=== PATIENT | female | born 1960 | race Caucasian/White ===

== ENCOUNTER → 2016-03-18 | Outpatient (CLI) | payer BC, OTHER ==
[~2016-03-18] MED LIST: ACET500T33 PO; FLUT9.9S NS; IOHEXOL 180 MG/ML 10 ML VIAL. ONE; LOSA25TA4 PO; METH-38 PO; NAPR220C4 PO; OMEP20CA9 PO; SIMV20TA3 PO; TRIA1TAB3 PO; methylPREDNISolone ACETATE 40 MG/ML VIAL. ONE; methylPREDNISolone ACETATE 80 MG/ML VIAL. ONE
--- NOTE | 2016-03-18 20:25 | PAIN ---
DATE OF SERVICE: 03/18/2016 DIAGNOSES: Lumbar radiculopathy with lumbar degenerative disk disease and lumbar post-laminectomy syndrome. HISTORY OF PRESENT ILLNESS: The patient is a 56-year-old female who returns for followup status post caudal approach epidural steroid injection that is on 01/05/2016. The patient reports that her insurance had changed and she was getting back in and is now returned for followup evaluation for about 3 weeks of very good improvement about 80% pain in the low back and right greater than left lower extremity. Still some pain in the right leg and low back which is returning now, near baseline sharp, aching, dull, shooting pain in the low back, right leg, posterior lateral thigh, posterior calf, posterior ankle and foot as well as in the left posterior gluteus, posterior thigh. The patient reports worse with walking and standing, change in positions or prolonged sitting. It does awaken her from sleep again, but otherwise is a 9 on a scale of 10. The patient reports no new motor or sensory deficits, no new bowel or bladder incontinence or other complaints. PHYSICAL EXAMINATION: VITAL SIGNS: The patient's blood pressure 156/92, pulse 73, respirations 18, temperature 97.9 degrees Fahrenheit, height 5 feet 4 inches, weighs 221 pounds. GENERAL: The patient is awake, alert, oriented, appropriate, very pleasant demeanor. HEENT: Head shows normocephalic, atraumatic. Extraocular movements are intact and symmetrical. Oral cavity shows mucous membranes moist and pink. Dentition is intact. NECK: Shows anterior throat supple without palpable lymphadenopathy noted. Swallow reflex is symmetrical. CHEST: Shows normal on inspection. Breath sounds clear to auscultation bilaterally. HEART: Shows S1 and S2 clear. ABDOMEN: Obese, soft, nontender, nondistended. No palpable organomegaly is noted. No rebound or guarding demonstrated. BACK: Shows spine grossly midline. Slight exaggeration of thoracic kyphosis and mild flattening of lumbar lordotic curvature previously well-healed surgical scars noted in the lumbar distribution. Lumbar paraspinous muscle shows some diffuse tenderness with palpation throughout the middle and lower distribution of paraspinous muscles, but only diffusely without evidence of atrophy, hypertrophy without trigger points, without radiation of pain. The patient shows good rotation and motion of the lumbar spine, both laterally as well as extension and flexion without significant increase in pain. EXTREMITIES: Lower extremities show deep tendon reflexes at 1+ in the patellar and tendo calcaneus tendons are equal. Motor exam is approximately 4 on a scale 5 with right quadriceps and hamstring flexion 5/5 on the left and 5/5 dorsiflexion and extension bilaterally. Options were discussed with the patient. At this time, the patient's old chart was reviewed as her current medication regimen updated. Current review of systems updated today as well. We will plan on second caudal epidural steroid injection today with fluoroscopic guidance. Risks were again discussed including, but not limited to bleeding, infection, possibility of epidural hematoma, subsequent neurologic compromise, dural puncture headaches, spinal cord and/or nerve damage, side effects of steroid medication and poor results regarding pain control. The patient understands and wishes to proceed. The patient will return to clinic in approximately 2 weeks for followup, was counseled on return appointment, activity level and side effects to be aware of. DIAGNOSIS: Lumbar radiculopathy with lumbar degenerative disk disease and post-lumbar laminectomy syndrome. PROCEDURE: Caudal approach epidural steroid injection with fluoroscopic guidance under sterile prep and drape using C-arm and local anesthetic. MEDICATIONS INJECTED: 120 mg Depo-Medrol plus 10 mL preservative-free normal saline and 2 mL of Isovue contrast. CONDITION AT DISCHARGE: Stable. The patient tolerated procedure well, had no complications. HORTENCIA DALTON MD DR: REBEKA/robert JOB#: [id number] / [id number]
== END ==
LOC: PNCL 08:04
PROVIDERS: ATTEND Anesthesiology
DX: M51.16 Intervertebral disc disorders with radiculopathy, lumbar region (principal); M96.1 Postlaminectomy syndrome, not elsewhere classified
CPT/HCPCS: 62323; J1030; J1040

== ENCOUNTER → 2016-04-05 | Outpatient (CLI) | payer BC ==
--- NOTE | 2016-04-06 02:58 | PAIN ---
DATE OF SERVICE: 04/05/2016 DIAGNOSES: Lumbar radiculopathy with lumbar degenerative disk disease and post-lumbar laminectomy syndrome. HISTORY OF PRESENT ILLNESS: The patient is a 56-year-old female who returns for followup status post caudal approach epidural steroid injections x 2. The patient reports about 60% improvement overall, still has pain across her low back. Her legs are much better. The patient reports she has been increasing her activity with greater ease and comfort, still doing some water aerobics which are helpful, but this pain is worse with weightbearing, standing and walking. The patient has a cramping sensation in the low back, as well as in the bilateral posterior gluteus, posterior thighs, right leg is much better, but still some radiation into the right thigh and lower leg occasionally. The patient reports pain when she is up on her feet more than about an hour. The patient reports no new motor or sensory deficits, no new bowel or bladder incontinence or other complaints. PHYSICAL EXAMINATION: VITAL SIGNS: Blood pressure 136/73, pulse is ____, respirations are 18, temperature 97.8 degrees Fahrenheit, height is 5 feet 4 inches, weight is 219 pounds. GENERAL: The patient is awake, alert, oriented, appropriate, very pleasant demeanor. HEENT: Shows normocephalic, atraumatic. Extraocular movements are intact and symmetrical. Oral cavity, mucous membranes are moist and pink. Dentition is intact. NECK: Shows anterior throat supple. Swallow reflex is symmetrical. Neck shows full rotation and motion of the cervical spine without difficulty including extension and flexion. CHEST: Shows normal on inspection. Breath sounds are clear to auscultation bilaterally. HEART: Shows S1 and S2 clear. ABDOMEN: Soft, nontender, nondistended. No palpable organomegaly is noted. No rebound or guarding demonstrated. BACK: Shows spine grossly midline. Slight exaggeration of thoracic kyphosis, mild flattening of lumbar lordotic curvature. Well-healed surgical scar is noted in the lumbar distribution. Lumbar paraspinous musculature appears roughly symmetrical without evidence of atrophy, hypertrophy. With palpation is moderately tender, but only diffusely in the lower lumbar distribution, more on the right than the left, but present bilaterally. EXTREMITIES: Lower extremities show deep tendon reflexes at 1+ in the patellar and tendo calcaneus tendons. Motor exam is approximately 4 on a scale of 5 with right quadriceps, hamstring and 5/5 with dorsiflexion and extension, 5/5 on the left entirely. Peripheral pulses are 1+ posterior tibial and dorsalis pedis pulses. No peripheral edema is noted. No clubbing or cyanosis. Options were discussed with the patient. The patient's old chart was reviewed as her current medication regimen updated. Current review of systems updated today as well. We will proceed with a third caudal approach epidural steroid injection today with fluoroscopic guidance. Risks were again discussed including, but not limited to bleeding, infection, possibility of epidural hematoma, subsequent neurologic compromise, dural puncture, headaches, spinal cord and/or nerve damage, side effects of steroid medication and poor results regarding pain control. The patient understands and wishes to proceed. The patient will return to clinic in approximately 2 weeks for followup. We had discussed possible physical therapy with the patient's back and water therapy at that time, and although she is doing aerobics. I encouraged her to maintain this regimen and keep doing her exercises, but may benefit from some specific instruction with core strengthening as well as low back strengthening and conditioning as well, the patient is interested in this if still having some pain after this last injection. The patient was counseled on activity levels as well as side effects to be aware of. I will follow in approximately 1 week with a progress report at that time. DIAGNOSES: Lumbar radiculopathy with lumbar degenerative disk disease and post-lumbar laminectomy syndrome. PROCEDURE: Caudal approach epidural steroid injection using C-arm fluoroscopic guidance under sterile prep and drape using local anesthesia. MEDICATIONS INJECTED: 120 mg of Depo-Medrol plus 10 mL of preservative-free normal saline and 2 mL of Isovue for contrast. CONDITION AT DISCHARGE: Stable. The patient tolerated procedure well, had no complications. HORTENCIA DALTON MD DR: REBEKA/robert JOB#: [id number] / [id number]
== END | disposition home or self-care (01) ==
LOC: PNCL 08:05
PROVIDERS: ATTEND Anesthesiology
DX: M51.16 Intervertebral disc disorders with radiculopathy, lumbar region (principal); M96.1 Postlaminectomy syndrome, not elsewhere classified
CPT/HCPCS: 62323; J1030; J1040

== ENCOUNTER → 2016-08-26 | Outpatient (CLI) | payer BC ==
[~2016-08-26] MED LIST changes: +GADOBUTROL 10 MMOL/10 ML VIAL IV ONE; -IOHEXOL 180 MG/ML 10 ML VIAL. ONE; -methylPREDNISolone ACETATE 40 MG/ML VIAL. ONE; -methylPREDNISolone ACETATE 80 MG/ML VIAL. ONE
--- NOTE | 2016-08-26 16:37 | KCIC ---
EXAM: MRI LUMBAR SPINE WITH AND WITHOUT CONTRAST. HISTORY: Low back pain with bilateral lower extremity radiculopathy. Prior lumbar surgery. TECHNIQUE: Magnetic resonance images of the lumbar spine were obtained before and after the intravenous administration of 10 mL Gadavist. COMPARISON: November 11, 2015. FINDINGS: There is a mild lumbar levocurvature. Instrumented anterior and posterior fusion is noted at L4-5. There is discectomy with interbody grafting. Pedicle screws are fixed by vertical juan on the right only. Associated laminectomy changes are noted. The inferior articular processes appear to be at least partially resected at L4. No fractures are identified. Degenerative disc disease is moderate from L2 through L4 and at L5-S1. The conus is at L1 and appears normal. There are no enhancing parenchymal lesions. At T10-11, there is a moderate central disc protrusion. There is no clear associated stenosis, though this is incompletely included. At T12-L1, there is a small posterior disc bulge. There is no stenosis. At L1-2, there is no stenosis. Facet and ligamentum flavum hypertrophy is mild. At L2-3, there is a moderate posterior disc bulge. Facet and ligamentum flavum hypertrophy is mild. There is mild mass effect on both L3 nerve roots in the lateral recesses. There is no significant neural foraminal stenosis. At L3-4, facet and ligamentum flavum hypertrophy is severe. There is a moderate posterior disc bulge. Central canal stenosis is moderate to severe. This appears slightly worsened since the prior study. The left lateral recess is occluded. Neural foraminal stenosis is mild bilaterally. At L4-5, the central canal is decompressed. There is no neural foraminal stenosis. There is no space-occupying granulation tissue. At L5-S1, there is a small posterior disc-osteophyte complex. It exerts mild mass effect on the right S1 nerve root in the lateral recess. IMPRESSION: 1. Instrumented anterior and posterior fusion with laminectomies at L4-5. Resection of the inferior articular processes at L4. No residual stenosis. 2. A moderate posterior disc bulge and severe facet and ligamentum flavum hypertrophy results in moderate to severe central canal stenosis and mild bilateral neural foraminal stenosis at L3-4. This appears slightly worsened since 2016. 3. Moderate degenerative disc disease from L2 through L4 and at L5-S1. 4. A moderate central disc protrusion at T10-11 is incompletely assessed but does not clearly result in stenosis. Electronically signed by: Ginny Torres MD (08/26/2016 4:34 PM) [facility]
== END | disposition home or self-care (01) ==
LOC: KCIC MRI 15:09
PROVIDERS: ATTEND Neurological Surgery
DX: M48.06 Spinal stenosis, lumbar region (principal)
CPT/HCPCS: 72158; A9585

== ENCOUNTER → 2016-09-06 | Outpatient (CLI) | payer BC ==
[~2016-09-06] MED LIST changes: +DOCU-109 PO; +ERGO500027 PO; -GADOBUTROL 10 MMOL/10 ML VIAL IV ONE; +HYDR-2762 PO
--- NOTE | 2016-09-06 10:08 | EKG ---
[facility] [address] [place] [address] Test Date: 2016-09-06 Test Time: 10:10:03 Pat Name: YORDY GIL Department: Room: Gender: F [facility] Manager: AMRIK : 1960 Requested By: ADAN CISNEROS Order Number: [id number] Reading MD: Marc Maciel Measurements Intervals Felda Rate: 71 P: 31 AR: 170 QRS: 53 QRSD: 78 T: 33 QT: 386 QTc: 424 Interpretive Statements SINUS RHYTHM NO SPECIFIC ECG ABNORMALITIES RI6.01 No previous ECG available for comparison Electronically Signed On 09-08-2016 11:33:18 CDT by Marc Maciel
[2016-09-06 10:15] LABS: BASO % 1 % (0-3); EOS % 2 % (0-3); HEMATOCRIT 40.9 % (36.0-47.0); LYMPH # 1.8 x10^3/uL (1.0-4.8); LYMPH % 27 % (24-48); MEAN CORPUSCULAR HEMOGLOBIN 28 pg (25-35); MEAN CORPUSCULAR HGB CONC 34 g/dL (31-37); MEAN CORPUSCULAR VOLUME 81 fL (79-100); MONO % 6 % (0-9); NEUT % 65 % (31-73); PLATELET COUNT 258 x10^3/uL (140-400); RED BLOOD COUNT 5.04 x10^6/uL (3.50-5.40); RED CELL DISTRIBUTION WIDTH 16.2 % (11.5-14.5); WHITE BLOOD COUNT 6.7 x10^3/uL (4.0-11.0)
[2016-09-06 10:34] LABS: ALBUMIN 3.9 g/dL (3.4-5.0); CALCIUM 9.6 mg/dL (8.5-10.1); CREATININE 0.8 mg/dL (0.6-1.0); GFR 73.7; POTASSIUM 3.7 mmol/L (3.5-5.1); TOTAL BILIRUBIN 0.6 mg/dL (0.2-1.0); TOTAL PROTEIN 7.8 g/dL (6.4-8.2)
== END | disposition home or self-care (01) ==
LOC: SURGPAT 08:59
PROVIDERS: ATTEND Neurological Surgery
DX: M51.16 Intervertebral disc disorders with radiculopathy, lumbar region (principal)
CPT/HCPCS: 36415; 80053; 85027; 87641; 93005

== ENCOUNTER 2016-09-09 08:51 | Day surgery (SDC) | payer BC ==
[~2016-09-09] VITALS: Ht 162.6 cm; Wt 102.1 kg
[~2016-09-09 08:51] MED LIST changes: +BACITRACIN 50,000 UNIT in IV NORMAL SALINE 1000ML BAG 1,000 ML IRR ONE; +BUPIVACAINE-EPI 0.5%-1:200000 50 ML VIAL. ONE; -DOCU-109 PO; +GELATIN SPONGE SIZE 100. ONE; -HYDR-2762 PO; +HYDROmorphone 2 MG/ML VIAL IV PRN; +IV RINGERS,LACTATED 1000ML 1,000 ML IV SCH; +KETOROLAC 60 MG/2 ML INJ FOR OR. ONE; +LIDOCAINE 1% 1 ML SYRINGE. ID PRN; +MORPHINE SULFATE 2 MG/ML DISP.SYRIN. IV PRN; +ONDANSETRON PF 4 MG/2 ML VIAL. IV PRN; +PROCHLORPERAZINE 10 MG/2 ML VIAL. IV PRN; +THROMBIN TOPICAL 20,000 UNIT SPRAY.SYRN KIT TP ONE; +fentaNYL PF VIAL 100 MCG/2 ML VIAL IV PRN
[2016-09-09] MEDS ORDERED: REMIFENTANIL 2 MG VIAL. IV ONE (09:16)
[2016-09-09] MEDS ORDERED: PROPOFOL 50 ML IV ONE ×2 (09:16→13:14)
[2016-09-09] MEDS ORDERED: DESFLURANE > 120 MINUTES IH ONE (09:16)
[2016-09-09] MEDS ORDERED: ROCURONIUM 50 MG/5 ML VIAL. ONE (09:16)
[2016-09-09] MEDS ORDERED: PROPOFOL 20 ML IV ONE (09:16)
[2016-09-09] MEDS ORDERED: DEXAMETHASONE SOD PHOS 20 MG/5 ML VIAL. ONE (09:16)
[2016-09-09] MEDS ORDERED: fentaNYL PF VIAL 100 MCG/2 ML VIAL ONE (09:16)
[2016-09-09] MEDS ORDERED: ONDANSETRON PF 4 MG/2 ML VIAL. ONE (09:16)
[2016-09-09] MEDS ORDERED: LIDOCAINE 2% PF Vial for OR 5 ML VIAL. ONE (09:16)
[2016-09-09] MEDS ORDERED: MIDAZOLAM HCL/PF 2 MG/2 ML VIAL. ONE (09:17)
[2016-09-09] MEDS ORDERED: MINERAL OIL/PETROLATUM,WHITE OPHTH OINT 3.5GM TUBE. ONE (10:59)
[2016-09-09] MEDS ORDERED: 0.9 % SODIUM CHLORIDE 50 ML VIAL. IJ ONE (11:28)
[2016-09-09] MEDS ORDERED: ePHEDrine PF IN SALINE 50 MG/5 ML DISP.SYRIN IV ONE (11:37)
[2016-09-09] MEDS ORDERED: PHENYLEPHRINE in 0.9% NACL PF 1 MG/10 ML DISP.SYRIN. IV ONE (12:00)
--- NOTE | 2016-09-09 13:50 | DISCH ---
DISCHARGE INSTRUCTIONS Condition on Discharge Condition on Discharge: Stable Activity After Discharge Activity Instructions for Disc: Activity as tolerated, Avoid exertion Other activity instructions: no driving for a week Bathing Instructions: Shower-keep dressing dry Lifting Instructions after Dis: No heavy lifting, No pulling or pushing, Do not lift >10 pounds Driving Instructions after Dis: Do not drive Diet after Discharge Additional Diet Restrictions: resume home diet Wound Incision Care Wound/Incision Care: Ice to area for comfort Other wound/incision instructi: may remove dressing in 48 hrs if dry then may shower- no soaking Contacting the after DC Call your doctor for: Concerns you may have Follow-Up Follow up with: Dr. Cisneros's nurse in 2 weeks [phone] ADAN CISNEROS MD Sep 09, 2016 13:50
[2016-09-09] MEDS ORDERED: DOCU-109 PO (13:52)
[2016-09-09] MEDS ORDERED: HYDR-2762 PO (13:52)
[2016-09-09] MEDS ORDERED: HYDROcodone/APAP 7.5/325MG 1 TAB TABLET PO ONE (14:45)
[2016-09-09 15:30] VITALS: BP 126/77
--- NOTE | 2016-09-09 21:17 | OP ---
DATE OF SURGERY: 09/09/2016 PREOPERATIVE DIAGNOSES: Lateral recess stenosis and recurrent disk herniation L3-L4, left. POSTOPERATIVE DIAGNOSES: Lateral recess stenosis and recurrent disk herniation L3-L4, left. OPERATION PERFORMED: Hemilaminotomy and microdiskectomy L3-L4, left, reoperation. The operation was done with EMG monitoring, fluoroscopy, microscopic dissection. TIE BINDER: ARAM Peres, assisted with the surgery. She assisted with the exposure, the microdiskectomy as well as the closure. OPERATIVE INDICATIONS: The patient is a very pleasant 56-year-old woman who developed intractable back and left leg pain. In the past, she has undergone instrumented fusion at L4-L5 and has also undergone surgery in the past at L3-L4. This point though she appeared to have recurrent ____ along with lateral stenosis and I recommended lumbar microsurgery. I spoke with her about the surgery, the risks, technique and the expected postoperative course, and she understood and wished to go ahead. DESCRIPTION OF PROCEDURE: Following general endotracheal anesthesia, the patient was positioned prone on the Acromed spine board. Lumbar region was then prepped and draped in standard fashion. STACY hose and AV impulse boots were applied for DVT prophylaxis. The microscope was draped. Fluoroscope was draped and brought into the field. Monitoring was established. Ancef 2 grams was given less than 1 hour prior to initiation of surgery. Using fluoroscopic guidance, a midline incision was made directly over the L3-L4 interspace. I dissected down through the skin and subcutaneous tissue and reflected the paraspinal muscles and placed a [place] microdisk retractor. I brought in the microscope and the remainder of surgery done with the microscope using microscopic technique. I used curettes to remove scar and then the high speed air drill was used to enlarge her previous hemilaminotomy superiorly, laterally and inferiorly. I did enlarge and performed a partial foraminotomy. I then began to free up thickened heavy scarred ligamentum flavum from the lateral position and gradually began to peel this away exposing the dura and then the exiting root. It took some considerable time to work through the dense scar and free up the lateral edge of the dura and the root, but this was accomplished and then I gently retracted the root medially. There was a sequestered disk fragment at the level of the disk compressing the root markedly. I gently entered into the space and removed some disk with the micropituitary and then as I worked, I was able to free up this region much more fully, removed multiple disk fragments. I was able to retract the root medially with mostly much less pressure. I entered into the disk space after incising the annulus with #11 blade. I performed a generous diskectomy with pituitary rongeurs. As I worked, the entire region became very well decompressed. I then irrigated copiously with antibiotic solution. I removed the retractor, obtained perfect hemostasis in the muscle and at the level of the decompression. I did use also a small amount of bone wax as well as bipolar cautery where necessary. I closed the wound in layers with absorbable suture. Skin was closed with 4-0 subcuticular stitch. The operation went very well. I was quite pleased with the surgery. ADAN CISNEROS MD DR: BERONICA/robert JOB#: [id number] / [id number]
--- NOTE | 2016-09-13 13:35 | PATHOLOGY ---
PATHOLOGY REPORT * * * * * * * * FINAL DIAGNOSIS: Segments of fibrocartilaginous, adipose, and skeletal muscle tissue and bone, lumbar disc and decompression: - Degenerative changes and scarring of fibrocartilaginous tissue. (JPM:kulwant; 09/13/2016) COMMENT: There is no evidence of an acute inflammatory process or malignancy. (JPM:kulwant; 09/13/2016) REPORT ELECTRONICALLY SIGNED BY: Jun Correa M.D. DATE/TIME: 09/13/2016 13:34 * * * * * * * * GROSS PATHOLOGY: Received in formalin labeled "Debi Hawkins, lumbar disc and decompression" are multiple segments of beckham, rubbery, and gritty tissue admixed with bone. The specimen measures 2.3 x 2.0 x 0.6 cm in aggregate dimensions. The tissue is submitted entirely in cassette A1, following decalcification. (JPM; 09/10/16) INITIAL CPT CODE(S): A; 05924, 41613 Professional services performed [place] [facility] [address] Technical services performed by [facility] at [address] [place] [address] [address], [place] [address]. SPECIMEN(S) RECEIVED: A.Lumbar disc and decompression CLINICAL HISTORY: Lumbar herniated disc with radiculopathy PATIENT: DEBI HAWKINS /AGE: 1 1960 (Age: 56) PATIENT #: [id number] ALT CASE #: SPECIMEN COLLECTION DATE: 09/09/2016 SPECIMEN RECEIVED DATE: 09/10/2016 [facility] - [facility] [place] [address] - PHONE: [phone] * * * END OF REPORT * * *
== END 2016-09-09 15:37 | disposition home or self-care (01) ==
LOC: SURG 08:51
PROVIDERS: ATTEND Neurological Surgery
DX: M51.36 Other intervertebral disc degeneration, lumbar region (principal); E78.00 Pure hypercholesterolemia, unspecified; I10 Essential (primary) hypertension; Z86.39 Personal history of other endocrine, nutritional and metabolic disease; Z90.49 Acquired absence of other specified parts of digestive tract; Z90.710 Acquired absence of both cervix and uterus
CPT/HCPCS: 63030; 76000; 97161; J1100; J1885; J2001; J2250; J2370; J2405; J2704; J3010; J3490; J7030; J2270

== ENCOUNTER → 2017-01-10 | Outpatient (CLI) | payer BC ==
[~2017-01-10] MED LIST changes: -BACITRACIN 50,000 UNIT in IV NORMAL SALINE 1000ML BAG 1,000 ML IRR ONE; -BUPIVACAINE-EPI 0.5%-1:200000 50 ML VIAL. ONE; +DOCU-109 PO; -GELATIN SPONGE SIZE 100. ONE; +HYDR-2762 PO; -HYDROmorphone 2 MG/ML VIAL IV PRN; -IV RINGERS,LACTATED 1000ML 1,000 ML IV SCH; -KETOROLAC 60 MG/2 ML INJ FOR OR. ONE; -LIDOCAINE 1% 1 ML SYRINGE. ID PRN; -MORPHINE SULFATE 2 MG/ML DISP.SYRIN. IV PRN; -ONDANSETRON PF 4 MG/2 ML VIAL. IV PRN; -PROCHLORPERAZINE 10 MG/2 ML VIAL. IV PRN; +PSYL575P4 PO; -THROMBIN TOPICAL 20,000 UNIT SPRAY.SYRN KIT TP ONE; -fentaNYL PF VIAL 100 MCG/2 ML VIAL IV PRN
[2017-01-10 09:13] LABS: BASO # 0.1 x10^3/uL (0.0-0.2); BASO % 1 % (0-3); EOS % 2 % (0-3); HEMATOCRIT 40.9 % (36.0-47.0); HEMOGLOBIN 13.4 g/dL (12.0-15.5); LYMPH # 2.2 x10^3/uL (1.0-4.8); LYMPH % 27 % (24-48); MEAN CORPUSCULAR HEMOGLOBIN 27 pg (25-35); MEAN CORPUSCULAR HGB CONC 33 g/dL (31-37); MEAN CORPUSCULAR VOLUME 84 fL (79-100); MONO % 7 % (0-9); NEUT % 64 % (31-73); PLATELET COUNT 280 x10^3/uL (140-400); RED BLOOD COUNT 4.89 x10^6/uL (3.50-5.40); RED CELL DISTRIBUTION WIDTH 15.3 % (11.5-14.5); WHITE BLOOD COUNT 8.2 x10^3/uL (4.0-11.0)
[2017-01-10 09:28] LABS: PROTHROMBIN TIME PATIENT 12.4 SEC (11.7-14.0)
[2017-01-10 10:16] LABS: BILIRUBIN,URINE NEGATIVE (NEG); GLUCOSE,URINE NEGATIVE (NEG); NITRITE,URINE NEGATIVE (NEG); PROTEIN,URINE NEGATIVE (NEG-TRACE); UROBILINOGEN,URINE 0.2 mg/dL (0.2 mg/dL)
[2017-01-10 10:26] LABS: SQUAMOUS EPITHELIAL CELL,UR FEW /LPF
[2017-01-10 10:27] LABS: BACTERIA,URINE FEW /HPF (0-FEW); RBC,URINE 0 /HPF (0-2)
--- NOTE | 2017-01-10 13:28 | RAD ---
Indication: Preop for knee replacement surgery. Time of exam 1317 hours. Correlation is made with prior study from 06/30/2010. FINDINGS: The heart size is normal. The lungs are clear. No pleural effusion or pneumothorax is identified. The pulmonary vascularity is normal. IMPRESSION: No acute abnormality detected.
== END | disposition home or self-care (01) ==
LOC: SURGPAT 13:04
PROVIDERS: ATTEND Orthopaedic Surgery
DX: Z01.818 Encounter for other preprocedural examination (principal); M17.12 Unilateral primary osteoarthritis, left knee; Z96.652 Presence of left artificial knee joint
CPT/HCPCS: 36415; 71020; 81001; 85025; 85610; 85651; 85730; 87641

== ENCOUNTER 2017-02-01 06:49 | Inpatient (IN) | payer BC ==
--- NOTE | 2017-01-31 15:30 | PDOC1 ---
History and Physical Date of Admission Date of Admission DATE: 02/01/17 Identification/Chief Complaint Chief Complaint left knee osteoarthritis pain Problems: Source Source: Chart review History of Present Illness History of Present Illness The patient is a 56 year old female with left knee pain for years, worsening since her back surgery in 08/2016. She started conservative treatment for her knee osteoarthritis on 10.14.16 including aspirating her left knee, receiving a cortisone injection, and starting formal physical therapy. She states that her knee feels about the same but physical therapy did help a little. Currently, she is taking Tramadol for pain management. She enjoys water aerobics, walking, and going to [employer] football games. However, she states that her knee bothers her everyday and makes these activities difficult. She states that walking into the grocery store is hard and she has a limp by the end of the day. Past Medical History Cardiovascular: HTN, Hyperlipidemia Past Surgical History Past Surgical History multiple back surgeries Past Surgical History: Cholecystectomy, Hysterectomy Family History Family History: Diabetes, Heart Disease, Hypertension Social History Smoke: No ALCOHOL: none Drugs: None Current Medications Current Medications Current Medications Ondansetron HCl (Zofran) 4 mg PRN Q6HRS PRN IV NAUSEA/VOMITING; Start at 07:00; Stop 02/02/17 at 06:59 Fentanyl Citrate (Fentanyl 2ml Vial) 25 mcg PRN Q5MIN PRN IV MILD PAIN; Start 02/01/17 at 07:00; Stop 02/02/17 at 06:59 Fentanyl Citrate (Fentanyl 2ml Vial) 50 mcg PRN Q5MIN PRN IV MODERATE PAIN; Start 02/01/17 at 07:00; Stop 02/02/17 at 06:59 Morphine Sulfate 1 mg PRN Q10MIN PRN IV SEVERE PAIN; Start 02/01/17 at 07:00; Stop 02/02/17 at 06:59 Ringer's Solution 1,000 ml @ 30 mls/hr Q24H IV ; Start 02/01/17 at 07:00; Stop 02/01/17 at 18:59 Lidocaine HCl (Xylocaine-Mpf 1% Vial) 2 ml PRN 1X PRN ID IV START; Start 02/01 at 07:00; Stop 02/02/17 at 06:59 Hydromorphone HCl (Dilaudid) 0.5 mg PRN Q10MIN PRN IV SEV PAIN, Second choice; Start 02/01/17 at 07:00; Stop 02/02/17 at 06:59 Prochlorperazine Edisylate (Compazine) 5 mg PACU PRN PRN IV NAUSEA, MRX1; Start 02/01/17 at 07:00; Stop 02/02/17 at 06:59 Bacitracin 01545 unit/Sodium Chloride 1,000 ml @ 1,000 mls/hr 1X PERIOP ONCE IRR ; Start 02/01/17 at 06:00; Stop 02/01/17 at 06:59 Active Scripts Active Reported Metamucil Powder (Psyllium Seed (with Sugar)) 575 Gm Powder 1 Tsp PO DAILY Vitamin D2 (Ergocalciferol (Vitamin D2)) 50,000 Unit Capsule 1 Cap PO TWICE WEEKLY Omeprazole 20 Mg Capsule.dr 1 Cap PO DAILY Flonase Allergy Relief (Fluticasone Propionate) 9.9 Ml [place].susp 2 Sprays NS DAILY Tylenol Extra Strength (Acetaminophen) 500 Mg Tablet 500 Mg PO BID Aleve (Naproxen Sodium) 220 Mg Capsule 220 Mg PO BID Simvastatin 20 Mg Tablet 20 Mg PO HS Losartan Potassium 25 Mg Tablet 25 Mg PO DAILY Triamterene-Hctz 37.5-25 Mg Tb (Triamterene/Hydrochlorothiazid) 1 Each Tablet 1 Tab PO DAILY Allergies Allergies: Coded Allergies: No Known Drug Allergies (Unverified , 09/09/16) Physical Exam General: Alert, Oriented X3, Cooperative, No acute distress HEENT: Atraumatic, EOMI Lungs: Normal air movement Heart: RRR Abdomen: Soft Extremities: No clubbing, No cyanosis, Normal pulses, Other (There is normal alignment. No masses. Small effusion. Tenderness on the medial and lateral joint lines. Range of motion is 5-95 degrees. There is crepitus with range of motion, and pain at the extremes of motion. The knee is stable to varus and valgus stress without subluxation or laxity. Muscle strength is normal (5/5) for quadriceps and hamstrings, and muscle tone is normal. The skin is normal with no scars, rashes, lesions or ulcers. Light touch sensation is intact. No edema and no varicosities. Dorsalis pedis pulse is intact and capillary refill is normal. ) Skin: No rashes, No breakdown, No significant lesion Neuro: Normal speech, Sensation intact Psych/Mental Status: Mental status NL, Mood NL VTE Prophylaxis Ordered VTE Prophylaxis Devices: Yes VTE Pharmacological Prophylaxi: Yes Assessment/Plan Assessment/Plan She has tried conservative treatment with over the counter anti-inflammatories and Tramadol, physical therapy, and a cortisone injection. Continued non- operative treatments could include viscosupplementation, aspirations and cortisone injections, bracing, and more physical therapy. As conservative treatment has not improved her symptoms much, we also discussed a left total knee arthroplasty. We discussed the potential risks of infection, neurovascular injury, bleeding, blood clots, need for revision surgery, or other potential surgical or anesthetic complications. She denies any metal or nickel allergies. She agrees to proceed with surgery. AISSATOU IVY Jan 31, 2017 15:30
[2017-02-01] VITALS (8 sets, daily range): BP systolic 105–120; BP diastolic 64–73
[~2017-02-01] VITALS: Ht 162.6 cm; Wt 79.4 kg
[~2017-02-01 06:49] MED LIST changes: +BACITRACIN 50,000 UNIT in IV NORMAL SALINE 1000ML BAG 1,000 ML IRR ONE; +CELECOXIB 200 MG CAPSULE. PO PRN; +HYDROcodone/APAP 7.5/325MG 1 TAB TABLET PO PRN; +MORPHINE SULFATE 5 MG, KETOROLAC 30 MG, ROPIVacaine 0.5% PF 60 ML, EPINEPHrine 0.5 MG i... INT ART ONE; +TRANEXAMIC ACID 1,000 MG in IV NS 50ML -- 1ST BAG INJ ONE
[2017-02-01] MEDS ORDERED: LIDOCAINE 1% PF 2 ML VIAL. ID PRN (07:00)
[2017-02-01] MEDS ORDERED: PROCHLORPERAZINE 10 MG/2 ML VIAL. IV PRN ×2 (07:00→12:00)
[2017-02-01] MEDS ORDERED: fentaNYL PF VIAL 100 MCG/2 ML VIAL IV PRN ×3 (07:00→12:00)
[2017-02-01] MEDS ORDERED: HYDROmorphone 2 MG/ML VIAL IV PRN (07:00)
[2017-02-01] MEDS ORDERED: IV RINGERS,LACTATED 1000ML 1,000 ML IV SCH (07:00)
[2017-02-01] MEDS ORDERED: ONDANSETRON PF 4 MG/2 ML VIAL. IV PRN (07:00)
[2017-02-01] MEDS ORDERED: MORPHINE SULFATE 2 MG/ML DISP.SYRIN. IV PRN ×2 (07:00→12:00)
[2017-02-01] MEDS ORDERED: CELE200C PO (07:27)
[2017-02-01] MEDS ORDERED: BUPIVACAINE 0.25% 50 ML VIAL. ONE (07:34)
[2017-02-01] MEDS ORDERED: VANCOMYCIN 1 GM VIAL. ONE (07:34)
[2017-02-01] MEDS ORDERED: TOBRAMYCIN POWDER 1.2 GM VIAL. ONE (07:35)
[2017-02-01] MEDS ORDERED: methylPREDNISolone ACETATE 80 MG/ML VIAL. ONE (07:35)
[2017-02-01] MEDS: SCOPOLAMINE 1.5MG PATCH. TD SCH (07:51)
[2017-02-01] MEDS ORDERED: TRANEXAMIC ACID 1,000 MG in IV NS 50ML -- 2ND BAG INJ ONE (08:00)
[2017-02-01] MEDS ORDERED: PROPOFOL 20 ML IV ONE (08:22)
[2017-02-01] MEDS ORDERED: LIDOCAINE 2% PF Vial for OR 5 ML VIAL. ONE (08:22)
[2017-02-01] MEDS ORDERED: fentaNYL PF VIAL 100 MCG/2 ML VIAL ONE (08:22)
[2017-02-01] MEDS ORDERED: DEXAMETHASONE SOD PHOS 20 MG/5 ML VIAL. ONE (08:55)
[2017-02-01] MEDS ORDERED: SEVOFLURANE 61 TO 120 MINUTES. IH ONE (08:55)
[2017-02-01] MEDS ORDERED: FAMOTIDINE 20 MG/2 ML VIAL ONE (09:03)
[2017-02-01] MEDS ORDERED: MORPHINE SULFATE 10 MG/ML VIAL. ONE (09:26)
[2017-02-01] MEDS ORDERED: ONDANSETRON PF 4 MG/2 ML VIAL. ONE (09:27)
--- NOTE | 2017-02-01 11:04 | PDOC4 ---
Operative Note Operative Note Date of Procedure: February 01, 2017 Pre-Op Diagnosis: Osteoarthritis left knee Post-Op Diagnosis: Osteoarthritis left knee Procedure: left total knee arthroplasty Surgeon: Jen Oliver MD Respiratory Physician: Mary Anne Martin PA-C Anesthesia: General EBL: 100 mL Specimens Obtained: left knee bone and soft tissue Complications: none Implant Company: [employer] Drains: hemovac plus pain catheter Tourniquet time: 52 Minutes Tourniquet Pressure: 350 mm Hg Indications for Procedure: Arthritis pain unrelieved by nonoperative management. Findings: Severe osteoarthritis with bone on bone contact medially and at the patellofemoral joint Implants used: Size 4 left bicruciate stabilized Journey II BCS Oxinium femoral component, size 3 left Journey nonporous tibial baseplate, size 3-4 12 mm left Journey II BCS XLPE articular insert, 32 mm oval Janie II resurfacing patellar component Procedure in Detail: The patient was identified in the preoperative holding area, and the correct left lower extremity was marked by me. The patient was taken to the operating room where the patient was anesthetized by the Department of Anesthesia. Preoperative antibiotics were given intravenously. Tranexamic acid 1 g was given intravenously for intraoperative hemostasis. A "time-out" procedure was performed. The patient was positioned supine on the operative table with a tourniquet on the upper left thigh. The left lower limb was thoroughly prepped and draped in sterile fashion. An impervious stockinet and adhesive drape were used such that the skin was entirely covered. An Herrera leg rasmussen was used. The operating team wore personal exhaust-ventilated hoods. The limb was elevated to exsanguinate it, and the tourniquet was inflated.. A midline skin incision was made with a scalpel using the patella and tibial tubercle as landmarks. Electrocautery was used for hemostasis. My virtual assistant for advertisers used rake retractors. A medial parapatellar arthrotomy incision was used with extension into the distal quadriceps tendon. The patella was retracted laterally and Hohmann retractors were now used by my virtual assistant for advertisers. Excess synovium, the menisci, and the cruciate ligaments were resected sharply. The patella was assessed and excess synovium and osteophytes around the patellar articulation were removed. The patella was measured with a caliper, cut freehand with a saw using caliper measurements, sized, and then drilled for an oval three-pegged patella component. Periarticular anesthetic injection was used in the suprapatellar pouch and distal quadriceps muscle. Whitesides's line and the transepicondylar axis were marked on the femur. An intra-medullary 5 degree cutting guide was pinned to the femur, and a distal femoral cut was made with an oscillating saw. An additional 2 mm resection was used due to the deep femoral sulcus, and deficient condyle. My virtual assistant for advertisers held Hohmann retractors and an [place] retractor to protect the medial and lateral collateral ligaments, the patellar tendon, the skin and the other soft tissues. An anterior referencing guide was applied with external rotation of 4 to match Whitesides line. A 5-in-1 Journey II cutting guide was then applied and pinned to the femur. The posterior, anterior, and all chamfer cuts were made with the oscillating saw. An extramedullary guide was pinned to the tibia and rotational alignment and the planned resection thickness assessed. An external alignment juan was used to verify the planned cut in the varus-valgus plane and regarding posterior slope referencing the tibial tubercle, the tibial shaft, the ankle joint, and the second metatarsal. The upper tibia was cut made with an oscillating saw. My virtual assistant for advertisers held Hohmann retractors and a posterior cruciate ligament retractor to protect the medial and lateral collateral ligaments, the patellar tendon, the skin, the peroneal nerve and the other soft tissues. The upper tibia was sized with a trial baseplate. The posterior compartment was cleared of osteophytes and loose bodies, and posterior capsule released. Periarticular anesthetic injection was used in the posterior compartment. The box cut for a posterior stabilized component was made. A preliminary reduction was performed with a trial femur, trial tibial baseplate and trial polyethylene. Soft-tissue balancing was now performed, and extension and rotation of the alignments was checked using a guide juan in the tibial trial and a guide pin in the femur. A medial release was required, using a 10 blade scalpel, and a Paz elevator to elevate the medial structures from the upper medial tibia. The stability was assessed using different thicknesses of tibial articular surface to find satisfactory stability and good range of motion. The rotation of the tibial component was marked on the upper tibia. Final trial reduction was now performed verifying patella tracking and tibiofemoral stability and alignment. The tibia preparation was completed with a drill, saw, and fin punch at the previously noted rotation. The final implants were verified and opened. Outer gloves were changed by the operating team. The bone cuts were washed thoroughly with the Sistemic InterPulse device and dried. Two packages of Reynolds + Nephew Rally HV bone cement were mixed in powdered form with Vancomycin 1gm and Tobramycin 1.2 gm, and then vacuum-mixed with the monomer, and placed into a cement gun. The cut surfaces of the bone were thoroughly dried with Morillo-tip suction and with laparotomy sponges for cement interdigitation. The final components were cemented into place. The knee was kept at full extension while the cement hardened, and excess cement was removed. Tranexamic acid 1 g was redosed intravenously for additional intraoperative hemostasis. A final periarticular anesthetic injection was used for pain relief. The tourniquet was released, and electrocautery was used for hemostasis. A final check of [id number] and stability was made, and the polyethylene implant final size was chosen. The polyethylene implant was secured to the tibial baseplate, and the knee was reduced a final time. Thorough irrigation was used. Hemovac and pain catheter were used.The arthrotomy was closed with interrupted [id number] #1 PDS suture. The arthrotomy incision was then run with #1 STRATAFIX Symmetric PDS Plus Knotless suture. The subcutaneous tissues were closed with #2-0 Vicryl by my virtual assistant for advertisers. The skin was approximated with STRATAFIX Spiral MONOCRYL Plus Knotless suture by my virtual assistant for advertisers. The skin incision was then covered and reinforced with Dermabond Prineo mesh skin closure dressing. A bulky sterile gauze dressing was applied. Needle and sponge counts were correct. There were no apparent complications. The patient returned to the recovery room in stable condition. EJN OLIVER MD Feb 01, 2017 11:04
[2017-02-01] MEDS: fentaNYL PF VIAL 100 MCG/2 ML VIAL IV PRN ×2 (11:45→11:56)
[2017-02-01] MEDS ORDERED: ACETAMINOPHEN 325 MG TABLET. PO PRN (12:00)
[2017-02-01] MEDS ORDERED: METOCLOPRAMIDE HCL 10 MG/2 ML VIAL. IV PRN (12:00)
[2017-02-01] MEDS ORDERED: PROCHLORPERAZINE 5 MG TABLET. PO PRN (12:00)
[2017-02-01] MEDS ORDERED: diphenhydrAMINE 50 MG/ML VIAL IV PRN (12:00)
[2017-02-01] MEDS ORDERED: HYDROcodone/APAP 7.5/325MG 1 TAB TABLET PO PRN (12:00)
[2017-02-01] MEDS ORDERED: HYDROcodone/APAP 10/325 1 TAB TABLET PO PRN (12:00)
[2017-02-01] MEDS ORDERED: ZOLPIDEM 5 MG TABLET. PO PRN (12:00)
[2017-02-01] MEDS ORDERED: DEXTROSE 50% 25 GM / 50ML DISP.SYRIN. IV PRN (12:00)
[2017-02-01] MEDS ORDERED: MORPHINE SULFATE 10 MG/ML VIAL. IV PRN (12:00)
[2017-02-01] MEDS ORDERED: CALCIUM CARBONATE 500 MG TAB.CHEW PO PRN (12:00)
[2017-02-01] MEDS ORDERED: oxyCODONE/APAP 5/325 1 TAB TABLET PO PRN (12:00)
[2017-02-01] MEDS ORDERED: traMADol 50 MG TABLET PO PRN ×2 (12:00)
[2017-02-01] MEDS ORDERED: MORPHINE SULFATE 4 MG/ML DISP.SYRIN. IV PRN ×2 (12:00)
[2017-02-01] MEDS ORDERED: 0.9 % SODIUM CHLORIDE 10 ML DISP.SYRIN. IV PRN (12:00)
--- NOTE | 2017-02-01 12:47 | RAD ---
Left knee, 2 views, 02/01/2017: History: Postop evaluation A total knee prosthesis has been placed in satisfactory position. A surgical drain overlies the operative site laterally. There is no evidence of a retained surgical instrument, needle or radiopaque sponge on these 2 views.
[2017-02-01] MEDS: IV DEXTROSE 5 %-0.45 % NACL 1,000 ML IV SCH (14:30)
[2017-02-01] MEDS: FERROUS SULFATE 325 MG TABLET. PO SCH (17:13)
[2017-02-01] MEDS: KETOROLAC 30 MG, BUPIVACAINE MPF 0.25% 20 ML, EPINEPHrine 0.5 MG in TOTAL VOLUME SYRING... INT ART SCH (17:14)
[2017-02-01] MEDS: SIMVASTATIN 20 MG TABLET PO SCH (21:00)
[2017-02-01] MEDS: ASPIRIN ENTERIC COATED 325 MG TABLET.DR. PO SCH (21:00)
[2017-02-01] MEDS: CELECOXIB 200 MG CAPSULE. PO SCH (21:00)
[2017-02-02] MEDS: IV DEXTROSE 5 %-0.45 % NACL 1,000 ML IV SCH ×4 (00:30→20:57)
[2017-02-02 02:55] VITALS: BP 131/62
[2017-02-02] MEDS: KETOROLAC 30 MG, BUPIVACAINE MPF 0.25% 20 ML, EPINEPHrine 0.5 MG in TOTAL VOLUME SYRING... INT ART SCH (05:35)
[2017-02-02] MEDS ORDERED: MAGNESIUM HYDROXIDE 2,400 MG/30 ML ORAL.SUSP. PO PRN (06:00)
[2017-02-02] MEDS: PANTOPRAZOLE 40 MG TABLET.DR. PO SCH (06:42)
[2017-02-02] MEDS: oxyCODONE/APAP 7.5/325 1 TAB TABLET PO PRN ×4 (06:43→21:05)
[2017-02-02 07:04] VITALS: BP 113/64
[2017-02-02 07:33] LABS: RED BLOOD COUNT 4.07 x10^6/uL (3.50-5.40); RED CELL DISTRIBUTION WIDTH 15.5 % (11.5-14.5); WHITE BLOOD COUNT 16.1 x10^3/uL (4.0-11.0)
[2017-02-02 08:25] VITALS: BP 101/52
[2017-02-02] MEDS: MULTIVITAMIN with MINERAL TABLET. PO SCH (08:25)
[2017-02-02] MEDS: CELECOXIB 200 MG CAPSULE. PO SCH ×2 (08:25→21:05)
[2017-02-02] MEDS: FERROUS SULFATE 325 MG TABLET. PO SCH ×2 (08:25→16:57)
[2017-02-02] MEDS: PSYLLIUM HUSK (SUGAR FREE) 1 PKT PACKET PO SCH (08:26)
[2017-02-02] MEDS: ASPIRIN ENTERIC COATED 325 MG TABLET.DR. PO SCH ×2 (08:26→21:05)
[2017-02-02] MEDS: SENNOSIDES/DOCUSATE 8.6/50MG TABLET. PO SCH (08:26)
[2017-02-02] MEDS: FLUTICASONE 50MCG/NASAL SPRAY 16GM BOTTLE. NS SCH (08:29)
[2017-02-02] MEDS: LOSARTAN POTASSIUM 25 MG TABLET. PO SCH (09:00)
[2017-02-02] MEDS: TRIAMTERENE/HCTZ 37.5/25MG TABLET. PO SCH (09:00)
--- NOTE | 2017-02-02 10:10 | PDOC ---
PROGRESS NOTES Subjective Subjective No complaints. States pain is well controlled. Objective Vital Signs Vital Signs Date Time Temp Pulse Resp B/P (MAP) Pulse Ox O2 Delivery O2 Flow Rate FiO2 02/02/17 07:48 Room Air 02/02/17 07:04 98.0 77 20 113/64 (80) 98 98.0 02/01/17 13:20 2.0 Physical Exam Dressing dry. Pain catheter and Hemovac in place. Good dorsiflexion and plantarflexion of the foot with no evidence of neurovascular injury or DVT. Calves are soft and non-tender. Negative Homans. Peripheral pulses and light touch sensation intact. Labs Laboratory Tests Test 02/02/17 07:10 White Blood Count 16.1 x10^3/uL (4.0-11.0) Red Blood Count 4.07 x10^6/uL (3.50-5.40) Hemoglobin 11.0 g/dL (12.0-15.5) Hematocrit 34.0 % (36.0-47.0) Mean Corpuscular Volume 84 fL (79-100) Mean Corpuscular Hemoglobin 27 pg (25-35) Mean Corpuscular Hemoglobin Concent 33 g/dL (31-37) Red Cell Distribution Width 15.5 % (11.5-14.5) Platelet Count 304 x10^3/uL (140-400) Laboratory Tests Test 02/02/17 07:10 White Blood Count 16.1 x10^3/uL (4.0-11.0) Red Blood Count 4.07 x10^6/uL (3.50-5.40) Hemoglobin 11.0 g/dL (12.0-15.5) Hematocrit 34.0 % (36.0-47.0) Mean Corpuscular Volume 84 fL (79-100) Mean Corpuscular Hemoglobin 27 pg (25-35) Mean Corpuscular Hemoglobin Concent 33 g/dL (31-37) Red Cell Distribution Width 15.5 % (11.5-14.5) Platelet Count 304 x10^3/uL (140-400) Imaging Postoperative x-rays reviewed by me, showing satisfactory total knee replacement , with no apparent complications. Assessment Assessment POD #1 left TKA Problems: Plan Plan of Care Continue POC including DVT prophylaxis and physical therapy. AISSATOU IVY Feb 02, 2017 10:10
[2017-02-02 11:35] VITALS: BP 112/64
[2017-02-02 16:00] VITALS: BP 126/76
[2017-02-02] MEDS ORDERED: BISACODYL 10 MG SUPP.RECT. PR PRN (16:00)
[2017-02-02] MEDS: SIMVASTATIN 20 MG TABLET PO SCH (21:05)
[2017-02-03] MEDS: oxyCODONE/APAP 7.5/325 1 TAB TABLET PO PRN ×5 (00:25→20:27)
[2017-02-03 04:29] LABS: HEMATOCRIT 30.6 % (36.0-47.0); HEMOGLOBIN 10.1 g/dL (12.0-15.5)
[2017-02-03 05:18] VITALS: BP 118/68
[2017-02-03] MEDS: PANTOPRAZOLE 40 MG TABLET.DR. PO SCH (06:40)
[2017-02-03] MEDS: FERROUS SULFATE 325 MG TABLET. PO SCH ×2 (08:15→17:26)
[2017-02-03] MEDS: CELECOXIB 200 MG CAPSULE. PO SCH ×2 (08:15→20:27)
[2017-02-03] MEDS: SENNOSIDES/DOCUSATE 8.6/50MG TABLET. PO SCH (08:15)
[2017-02-03] MEDS: MULTIVITAMIN with MINERAL TABLET. PO SCH (08:15)
[2017-02-03] MEDS: PSYLLIUM HUSK (SUGAR FREE) 1 PKT PACKET PO SCH (08:16)
[2017-02-03] MEDS: ASPIRIN ENTERIC COATED 325 MG TABLET.DR. PO SCH ×2 (08:16→20:28)
[2017-02-03] MEDS: TRIAMTERENE/HCTZ 37.5/25MG TABLET. PO SCH (08:19)
[2017-02-03] MEDS: LOSARTAN POTASSIUM 25 MG TABLET. PO SCH (08:20)
[2017-02-03] MEDS: FLUTICASONE 50MCG/NASAL SPRAY 16GM BOTTLE. NS SCH (09:00)
--- NOTE | 2017-02-03 15:04 | PATHOLOGY ---
PATHOLOGY REPORT * * * * * * * * FINAL DIAGNOSIS: Segment of bone and soft tissue, left total knee arthroplasty: - Advanced degenerative arthritis. (JPM:db; 02/03/2017) REPORT ELECTRONICALLY SIGNED BY: Jun Correa M.D. DATE/TIME: 02/03/2017 15:03 * * * * * * * * GROSS PATHOLOGY: Received in formalin labeled "Deib Gil left knee bone and tissue," are multiple segments of bone, including tibial plateau, measuring 14.8 x 13.9 x 2.3 cm in aggregate dimensions admixed with soft tissue; meniscus is present. The specimen shows focal eburnation of the articular surfaces. Territory Account Representative sections of bone and soft tissue are submitted in cassette A1, following decalcification. (DAC; 02/02/2017) INITIAL CPT CODE(S): A; 61352, 97459 Professional services [place] [facility] [place] [address] Technical services performed by [facility] at [address] [place] [address], [facility] [address] [address]. SPECIMEN(S) RECEIVED: A.Left knee bone and tissue CLINICAL HISTORY: OA PATIENT: DEBI GIL /AGE: 1 1960 (Age: 56) PATIENT #: [id number] ALT CASE #: SPECIMEN COLLECTION DATE: 02/01/2017 SPECIMEN RECEIVED DATE: 02/01/2017 [facility] - [address] [place] [address] - PHONE: [phone] * * * END OF REPORT * * *
[2017-02-03] MEDS: IV DEXTROSE 5 %-0.45 % NACL 1,000 ML IV SCH (16:30)
--- NOTE | 2017-02-03 16:54 | PDOC ---
PROGRESS NOTES Subjective Subjective States pain is mildly worse today, but controlled with pain meds. Objective Vital Signs Vital Signs Date Time Temp Pulse Resp B/P (MAP) Pulse Ox O2 Delivery O2 Flow Rate FiO2 02/03/17 12:30 Room Air 02/03/17 08:20 91 120/71 02/03/17 06:40 20 02/03/17 05:18 97.0 94 97.0 02/02/17 16:00 3.0 Physical Exam Dressing dry. Pain catheter and Hemovac have been removed. Good dorsiflexion and plantarflexion of the foot with no evidence of neurovascular injury or DVT. Calves are soft and non-tender. Negative Homans. Peripheral pulses and light touch sensation intact. Labs Laboratory Tests Test 02/02/17 07:10 02/03/17 04:10 White Blood Count 16.1 x10^3/uL (4.0-11.0) Red Blood Count 4.07 x10^6/uL (3.50-5.40) Hemoglobin 11.0 g/dL (12.0-15.5) 10.1 g/dL (12.0-15.5) Hematocrit 34.0 % (36.0-47.0) 30.6 % (36.0-47.0) Mean Corpuscular Volume 84 fL (79-100) Mean Corpuscular Hemoglobin 27 pg (25-35) Mean Corpuscular Hemoglobin Concent 33 g/dL (31-37) 33 g/dL (31-37) Red Cell Distribution Width 15.5 % (11.5-14.5) Platelet Count 304 x10^3/uL (140-400) Laboratory Tests Test 02/03/17 04:10 Hemoglobin 10.1 g/dL (12.0-15.5) Hematocrit 30.6 % (36.0-47.0) Mean Corpuscular Hemoglobin Concent 33 g/dL (31-37) Assessment Assessment POD #2 TKA Problems: Plan Plan of Care Continue DVT prophylaxis and physical therapy. Plan for discharge to home tomorrow afternoon. AISSATOU IVY Feb 03, 2017 16:54
[2017-02-03 18:11] VITALS: BP 122/64
[2017-02-03] MEDS: SIMVASTATIN 20 MG TABLET PO SCH (20:28)
[2017-02-04] MEDS: IV DEXTROSE 5 %-0.45 % NACL 1,000 ML IV SCH (02:30)
[2017-02-04 05:27] LABS: HEMATOCRIT 31.6 % (36.0-47.0); HEMOGLOBIN 10.4 g/dL (12.0-15.5)
[2017-02-04 06:00] VITALS: BP 120/73
[2017-02-04] MEDS: PANTOPRAZOLE 40 MG TABLET.DR. PO SCH (06:37)
[2017-02-04] MEDS: ASPIRIN ENTERIC COATED 325 MG TABLET.DR. PO SCH (08:07)
[2017-02-04] MEDS: FERROUS SULFATE 325 MG TABLET. PO SCH (08:07)
[2017-02-04] MEDS: MULTIVITAMIN with MINERAL TABLET. PO SCH (08:07)
[2017-02-04] MEDS: SENNOSIDES/DOCUSATE 8.6/50MG TABLET. PO SCH (08:07)
[2017-02-04] MEDS: CELECOXIB 200 MG CAPSULE. PO SCH (08:07)
[2017-02-04] MEDS: LOSARTAN POTASSIUM 25 MG TABLET. PO SCH (08:08)
[2017-02-04] MEDS: PSYLLIUM HUSK (SUGAR FREE) 1 PKT PACKET PO SCH (08:09)
[2017-02-04] MEDS: oxyCODONE/APAP 7.5/325 1 TAB TABLET PO PRN ×2 (08:12→12:33)
[2017-02-04 08:14] VITALS: BP 124/68
[2017-02-04] MEDS: TRIAMTERENE/HCTZ 37.5/25MG TABLET. PO SCH (08:14)
[2017-02-04] MEDS: FLUTICASONE 50MCG/NASAL SPRAY 16GM BOTTLE. NS SCH (09:00)
[2017-02-04] MEDS: SCOPOLAMINE 1.5MG PATCH. TD SCH (09:00)
[2017-02-04] MEDS ORDERED: FERR-26 PO (11:20)
[2017-02-04] MEDS ORDERED: ASPI325T11 PO (11:20)
[2017-02-04 11:44] VITALS: BP 111/61
[2017-02-04] MEDS ORDERED: CELE100C PO (12:55)
[2017-02-04] MEDS ORDERED: OXYC-327 PO (13:04)
--- NOTE | 2017-02-04 13:48 | PDOC ---
PROGRESS NOTES Subjective Subjective Doing well. Planning for discharge later today after PT. Objective Vital Signs Vital Signs Date Time Temp Pulse Resp B/P (MAP) Pulse Ox O2 Delivery O2 Flow Rate FiO2 02/04/17 12:33 16 02/04/17 11:44 98.5 81 111/61 (78) Room Air 98.5 02/04/17 06:00 96 2.0 Physical Exam Expected swelling. Prineo dressing intact and dry. Calf soft and nontender. Negative Homans. Good AROM ankle. Peripheral pulses and light touch sensation intact. Labs Laboratory Tests Test 02/03/17 04:10 02/04/17 05:00 Hemoglobin 10.1 g/dL (12.0-15.5) 10.4 g/dL (12.0-15.5) Hematocrit 30.6 % (36.0-47.0) 31.6 % (36.0-47.0) Mean Corpuscular Hemoglobin Concent 33 g/dL (31-37) 33 g/dL (31-37) Laboratory Tests Test 02/04/17 05:00 Hemoglobin 10.4 g/dL (12.0-15.5) Hematocrit 31.6 % (36.0-47.0) Mean Corpuscular Hemoglobin Concent 33 g/dL (31-37) Assessment Assessment POD #3 left TKA Problems: Plan Plan of Care Discharge later today, to home. Continue DVT prophylaxis and physical therapy. F/U 10-14 days. AISSATOU IVY Feb 04, 2017 13:48
--- NOTE | 2017-02-04 13:51 | PDOC3 ---
Discharge Summary Visit Information Date of Admission: Feb 01, 2017 Date of Discharge: Feb 04, 2017 Admitting Diagnosis: left knee osteoarthritis pain Brief Hospital Course Allergies Allergies Coded Allergies Type Severity Reaction Last Updated Verified No Known Drug Allergies 02/01/17 No Vital Signs Vital Signs Date Time Temp Pulse Resp B/P (MAP) Pulse Ox O2 Delivery O2 Flow Rate FiO2 02/04/17 12:33 16 02/04/17 11:44 98.5 81 111/61 (78) Room Air 98.5 02/04/17 06:00 96 2.0 Lab Results Laboratory Tests Test 02/03/17 04:10 02/04/17 05:00 Hemoglobin 10.1 g/dL (12.0-15.5) 10.4 g/dL (12.0-15.5) Hematocrit 30.6 % (36.0-47.0) 31.6 % (36.0-47.0) Mean Corpuscular Hemoglobin Concent 33 g/dL (31-37) 33 g/dL (31-37) Laboratory Tests Test 02/04/17 05:00 Hemoglobin 10.4 g/dL (12.0-15.5) Hematocrit 31.6 % (36.0-47.0) Mean Corpuscular Hemoglobin Concent 33 g/dL (31-37) Brief Hospital Course 56 year old female who presented with left knee osteoarthritis, for elective total knee arthroplasty. The patient underwent left total knee arthroplasty under general anesthesia the day of admission. Perioperative antibiotics and DVT prophylaxis were used. Postoperatively physical therapy and case management were consulted. The patient progressed and is stable for discharge. Discharge Information Condition at Discharge: Stable Follow Up: Weeks (2) Disposition/Orders: D/C to Home Scheduled Aspirin (Aspirin Ec), 1 TAB PO BIDAFTMEAL, (Reported) Celecoxib (Celebrex), 1 CAP PO DAILYWBKFT, (Reported) Ferrous Sulfate (Ferrous Sulfate), 1 TAB PO DAILY, (Reported) Fluticasone Propionate (Flonase Allergy Relief), 2 SPRAYS NS DAILY, (Reported) Losartan Potassium (Losartan Potassium), 25 MG PO DAILY, (Reported) Omeprazole (Omeprazole), 1 CAP PO DAILY, (Reported) Psyllium Seed (with Sugar) (Metamucil Powder), 1 TSP PO DAILY, (Reported) Simvastatin (Simvastatin), 20 MG PO HS, (Reported) Triamterene/Hydrochlorothiazid (Triamterene-Hctz 37.5-25 Mg Tb), 1 TAB PO DAILY, (Reported) Scheduled PRN Oxycodone/Apap 7.5-325 (Percocet 7.5-325 Mg Tablet), 1 TAB PO PRN Q4-6HRS PRN for PAIN, (Reported) Discontinued Medications Acetaminophen (Tylenol Extra Strength), 500 MG PO BID, (Reported) Celecoxib (Celebrex), 1 CAP PO 1X, (Reported) Ergocalciferol (Vitamin D2) (Vitamin D2), 1 CAP PO TWICE WEEKLY, (Reported) Naproxen Sodium (Aleve), 220 MG PO BID, (Reported) Patient Instructions Patient Instructions Patient Instructions Continue to WBAT with walker. Keep dressing dry and intact. F/U with [facility] in 10-14 days. Call for appointment. Physical therapy for TKA Continue DVT prophylaxis with aspirin 325mg twice daily. AISSATOU IVY Feb 04, 2017 13:51
== END 2017-02-04 14:45 | disposition home or self-care (01) | DRG 470 ==
LOC: OPSVCIP 06:49 → 4 SOUTHEST 13:45
PROVIDERS: ADMIT Orthopaedic Surgery; ATTEND Orthopaedic Surgery
PROC: 0SRD0J9 Replacement of Left Knee Joint with Synthetic Substitute, Cemented, Open Approach (ICD-10-PCS; principal; 2017-02-01 09:00)
DX: M17.12 Unilateral primary osteoarthritis, left knee (principal); E78.5 Hyperlipidemia, unspecified; I10 Essential (primary) hypertension; Z82.49 Family history of ischemic heart disease and other diseases of the circulatory system; Z83.3 Family history of diabetes mellitus; Z90.710 Acquired absence of both cervix and uterus; Z90.49 Acquired absence of other specified parts of digestive tract
CPT/HCPCS: 36415; 73560; 85014; 85018; 85027; 86850; 86900; 86901; 88305; 88311; C1713; J0171; J0690; J1040; J1100; J1885; J2270; J2405; J2704; J2795; J3010; J3260; J3370; J3490; J7030; J7120; S0028; 97116; 97150; 97530; 97535; A4461; C1769; J2001